=== PATIENT | male | born 1945 | race Caucasian/White ===

== ENCOUNTER → 2018-03-17 12:44 | Outpatient (CLI) | payer MEDICARE, SELFPAY ==
--- NOTE | 2018-03-17 | DI.US.S_ITS ---
PROCEDURE: US ABDOMEN COMPLETE INDICATIONS: ABDOMINAL PAIN TECHNIQUE: Real-time scanning was performed of the abdominal and retroperitoneal organs, with image documentation. COMPARISON: [facility], [place], ABDOMEN COMPLETE, 10/17/2015, 9:58. FINDINGS: Liver: Liver is normal in size and homogeneous in echotexture. Gallbladder: No gallstones identified. Normal gallbladder wall. No pericholecystic fluid. Negative sonographic Zaragoza sign. Biliary ducts: Intrahepatic bile ducts are non-dilated. Extrahepatic bile duct caliber measures 6.0 mm. Normal is 6-7 mm or less in diameter, or 10 mm or less post-cholecystectomy. Pancreas: Not well-seen. Spleen: Spleen is normal in size and homogeneous in echotexture. Kidneys: Kidneys are normal in size and echotexture. Right kidney measures 10.5 cm long; left kidney measures 10 point cm long. No hydronephrosis or nephrolithiasis. No solid masses. Aorta: Visualized aorta is normal in caliber at less than 3 cm. Iliacs: Proximal common iliac arteries are normal in caliber at less than 2.5 cm. IVC: Intrahepatic inferior vena cava is patent. Miscellaneous: No free abdominal fluid. . IMPRESSION: No source for right upper quadrant pain identified. Dictated by: Nickolas DE LEON Interpreted: Josy Forrester MD on 03/17/2018 at 14:31 Approved by: Josy Forrester M.D. on 03/17/2018 at 15:10
== END ==
PROVIDERS: PCP Internal Medicine; Visit Provider Internal Medicine
DX: R10.11 Right upper quadrant pain (principal)
CPT/HCPCS: 76700

== ENCOUNTER 2019-03-18 08:53 | Observation (INO) | payer MEDICARE, SELFPAY ==
[2019-03-18] VITALS (13 sets, daily range): BP systolic 95–145; BP diastolic 47–73; PULSE 62–85; RESP 13–18; TEMP 35.5–37.1; O2SAT 93–100; BMI 25.2
--- NOTE | 2019-03-18 09:56 | DI.RAD.S_ITS ---
PROCEDURE: XR CHEST 1V INDICATIONS: syncope TECHNIQUE: One view of the chest was acquired. COMPARISON: None. FINDINGS: Surgical changes and devices: None. Lungs and pleura: Slight increased density within the left infrahilar region of the left lung base is present. No lobar consolidation, effusion, or pneumothorax is evident. Mediastinum: Mediastinal contours appear normal. Heart size is normal. Be calcified the aorta pulmonary window lymph nodes versus aortic atherosclerosis. Bones and chest wall: No suspicious bony lesions. Overlying soft tissues appear unremarkable. IMPRESSION: Left infrahilar increased density may represent atelectasis. Please correlate clinically to exclude pneumonia. Dictated by: Zach Rice M.D. on 03/18/2019 at 9:28 Approved by: Zach Rice M.D. on 03/18/2019 at 9:28
--- NOTE | 2019-03-18 10:00 | ED.SYNCOPE ---
HPI - Syncope General Chief Complaint: Syncope Stated Complaint: Vomitting and diarreha, passed out earlier Time Seen by Provider: 03/18/19 09:51 Source: patient and family Mode of arrival: wheelchair Limitations: no limitations History of Present Illness HPI narrative: Patient is a 73-year-old male who had his multiple episodes of diarrhea and vomiting for last 24 hours. Nonbloody. He had a syncopal episode at home while he was vomiting. states he was bent over throwing up when he passed out briefly. She was able to wake him up she almost called 911 but patient refused to go by ambulance at which point he got into the car. He then was in triage when he passed out briefly in front of the nurse requiring harsh sternal rub. He says he feels dizzy and lightheaded upon sitting up. He cannot focus. No specific abdominal pain. Just multiple episodes vomiting diarrhea. He has no chest pain no shortness of breath. MD complaint: collapsed Related Data Home Medications Medication Instructions Recorded Confirmed ASPIRIN (Aspirin Low Dose) 81 mg PO QPM #0 01/08/11 03/18/19 Simvastatin (Zocor) 40 mg PO Q DAY #0 01/08/11 03/18/19 lisinopril 5 mg PO DAILY #0 06/20/17 03/18/19 zolpidem 5 mg PO BEDTIME 03/18/19 03/18/19 Allergies Allergy/AdvReac Type Severity Reaction Status Date / Time No Known Drug Allergies Allergy Unknown Unverified 02/09/18 11:56 [NO KNOWN DRUG ALLERGIES] INGREDIENT: NKDA - NO KNOWN Allergy Unknown Uncoded 02/09/18 11:56 DRUG ALLERGIES Review of Systems Review of Systems ROS Unobtainable: All systems reviewed & are unremarkable except as noted in HPI and below Constitutional Denies chills, Denies fever(s), Denies lethargy and Denies weakness Eyes Denies change in vision, Denies eye discharge, Denies irritation and Denies loss of vision ENT Ears, Nose, Mouth, and Throat: Denies change in voice, Denies neck pain and Denies sore throat Cardiovascular Denies chest pain, Reports syncope, Denies palpitations and Denies dyspnea Respiratory Denies cough and Denies dyspnea Gastrointestinal Gastrointestinal: Reports as per HPI, Reports diarrhea, Reports nausea and Reports vomiting Genitourinary Denies hematuria, Denies flank pain, Denies urinary incontinence and Denies urinary urgency Musculoskeletal Denies neck pain Integumentary/Breasts Denies pruritus, Denies erythema, Denies rash and Denies wounds Neurologic Reports syncope, Denies loss of vision and Denies weakness Endocrine Denies palpitations [facility] Medical History Hyperlipidemia (Acute) Hypertension (Acute) TIA (transient ischemic attack) (Acute) Surgical History History of mandibular surgery (Acute) Family History Mother Heart disease Father Gunshot wound Social History marital status: household members: spouse Smoking Status: Former smoker alcohol intake: former Family History Mother Heart disease Father Gunshot wound Social History marital status: household members: spouse Smoking Status: Former smoker alcohol intake: former Exam Initial Vital Signs Initial Vital Signs: Vital Signs Temperature 95.9 F L 03/18/19 10:00 Pulse Rate 62 03/18/19 10:00 Respiratory Rate 18 03/18/19 10:00 Blood Pressure 98/55 L 03/18/19 10:00 Pulse Oximetry 99 03/18/19 10:00 GENERAL: Elderly male slightly pale A&Ox3 HEENT: Head atraumatic,EOMI, pupils reactive, face symmetric, dry mucous membranes CARDIOVASCULAR: Regular rate and rhythm without murmurs, rubs or gallops. RESPIRATORY: Breath sounds equal bilaterally, no wheezes rales or rhonchi. ABDOMEN: Soft, nontender. Normoactive bowel sounds all 4 quadrants. No guarding or rebound. : No CVA tenderness EXTREMITIES: Normal range of motion, no clubbing or edema. Neurovascularly intact NEUROLOGICAL: Alert and oriented x4.Normal gait and speech. Cranial nerves II through XII grossly intact. Customer Consultant strength equal bilateral SKIN: Warm, dry, no laceration, no petechiae, no rashes or lesions. Scores NIH Stroke Scale Level of Conciousness: Alert, keenly responsive Ask month/age: Answers both questions correctly. Open/close eyes, close hand: Performs both tasks correctly Best gaze horizontal: Normal Visual moreno: No visual loss Facial palsy: Normal symetrical movement Left arm drift: No drift for full 10 sec Right arm drift: No drift for full 10 sec Left leg drift: No drift for full 10 sec Right leg drift: No drift for full 10 sec Limb ataxia: Absent Sensory on face/arms/legs: Normal, no sensory loss Best language: No aphasia, normal Dysarthria: Normal Extinction or inattention: No abnormality Total NIH Stroke scale score: 0 Course Orders Ordered: ED Orders 03/18/19 09:56 XR chest 1V Stat EKG-12 Lead Stat 03/18/19 10:20 Complete Blood Count AUTO DIFF Stat Comprehensive Metabolic Panel Stat Lactate (Lactic Acid) Stat Lipase Stat Troponin & CK Cardiac Panel Stat 03/18/19 12:25 Education, smoking cessation ONGOING 03/19/19 Lactate (Lactic Acid) Stat 03/19/19 05:00 Basic Metabolic Panel Routine Complete Blood Count AUTO DIFF Routine Dextrose/Sodium Chloride (Dextrose 5%-0.9% Ns) 1,000 mls @ 100 mls/hr IV CONT PETEY Last Infusion: 03/18/19 13:52 Dose: 100 mls/hr Infusion: 03/18/19 13:39 Dose: 0 mls/hr Admin: 03/18/19 12:47 Dose: 100 mls/hr Ondansetron HCl (Zofran) 4 mg IV Q8HR PRN PRN Reason: Nausea And Vomiting Discontinued Medications Sodium Chloride (Normal Saline 0.9%) 1,000 mls @ 1,000 mls/hr IV BOLUS ONE Stop: 03/18/19 10:50 Last Infusion: 03/18/19 11:28 Dose: 0 mls/hr Admin: 03/18/19 10:10 Dose: 1,000 mls/hr Sodium Chloride (Normal Saline 0.9%) 1,000 mls @ 1,000 mls/hr IV BOLUS ONE Stop: 03/18/19 12:26 Last Infusion: 03/18/19 12:46 Dose: 0 mls/hr Admin: 03/18/19 11:29 Dose: 1,000 mls/hr Vital Signs - 8 hr 03/18/19 11:05 03/18/19 11:20 03/18/19 11:30 Temperature Pulse Rate 67 66 Pulse Rate [Orthostatic Lying] 67 Pulse Rate [Orthostatic Sitting] 74 Pulse Rate [Orthostatic Standing] 78 Respiratory Rate 16 13 Blood Pressure Blood Pressure [Left Arm] 125/66 116/62 Blood Pressure [Orthostatic Lying] 125/66 Blood Pressure [Orthostatic Sitting] 120/62 Blood Pressure [Orthostatic Standing] 95/70 Pulse Oximetry 98 100 03/18/19 12:00 03/18/19 12:30 03/18/19 13:00 Temperature Pulse Rate 71 73 80 Pulse Rate [Orthostatic Lying] Pulse Rate [Orthostatic Sitting] Pulse Rate [Orthostatic Standing] Respiratory Rate 18 15 15 Blood Pressure Blood Pressure [Left Arm] 129/60 137/60 122/59 L Blood Pressure [Orthostatic Lying] Blood Pressure [Orthostatic Sitting] Blood Pressure [Orthostatic Standing] Pulse Oximetry 97 100 95 03/18/19 13:40 03/18/19 13:45 03/18/19 15:46 Temperature 98.8 F 98.0 F Pulse Rate 67 74 85 Pulse Rate [Orthostatic Lying] Pulse Rate [Orthostatic Sitting] Pulse Rate [Orthostatic Standing] Respiratory Rate 16 18 18 Blood Pressure 122/69 145/72 H 138/73 Blood Pressure [Left Arm] Blood Pressure [Orthostatic Lying] Blood Pressure [Orthostatic Sitting] Blood Pressure [Orthostatic Standing] Pulse Oximetry 98 93 100 MDM - Syncope Lab Data Attestation: I reviewed the patient's lab results. Result diagrams: 03/18/19 10:20 03/18/19 10:20 Lab Results 03/18/19 03/18/19 03/18/19 Range/Units 10:20 10:20 10:20 WBC 16.6 H (4.5-11.0) X10^3/uL RBC 5.45 (4.5-5.9) X10^6/uL Hgb 17.4 (13.5-17.5) g/dL Hct 51.2 (41-53) % MCV 93.9 (80-100) fL MCH 31.9 (26-34) PG MCHC 34.0 (30-36) % RDW 13.5 (11.6-14.8) % Plt Count 279 (150-400) X10^3/uL Neut % (Auto) 89.7 H (50-75) % Lymph % (Auto) 6.8 L (25-40) % [place] % (Auto) 3.2 (3-14) % Eos % (Auto) 0.0 L (2-4) % Baso % (Auto) 0.3 (0-2) % Neut # (Auto) 86988 H (3929-9559) /uL Lymph # (Auto) 1100 (6252-6946) /uL [place] # (Auto) 500 (0-900) /uL Eos # (Auto) 0 (0-450) /uL Baso # (Auto) 0 (0-100) /uL Sodium (137-145) mmol/L Potassium (3.4-5.1) mmol/L Chloride (98-107) mmol/L Carbon Dioxide (22-32) mmol/L BUN (9-20) mg/dL Creatinine (0.66-1.25) mg/dL Estimated GFR (>60) mL/min BUN/Creatinine Ratio (6-22) Glucose (80-110) mg/dL Lactate 2.4 H (0.7-2.1) mmol/L Calcium (8.4-10.2) mg/dL Total Bilirubin (0.2-1.3) mg/dL AST (17-59) IU/L ALT (21-72) IU/L Alkaline Phosphatase (38-126) U/L Total Creatine Kinase (55-170) U/L CK-MB (CK-2) CK-MB (CK-2) Rel Index Troponin I (0.01-0.034) ng/mL Total Protein (6.3-8.2) g/dL Albumin (3.5-5.0) g/dL Globulin (1.7-4.1) g/dL Albumin/Globulin Ratio (1.0-2.8) Lipase 127 (23-300) U/L 03/18/19 03/18/19 Range/Units 10:20 13:34 WBC (4.5-11.0) X10^3/uL RBC (4.5-5.9) X10^6/uL Hgb (13.5-17.5) g/dL Hct (41-53) % MCV (80-100) fL MCH (26-34) PG MCHC (30-36) % RDW (11.6-14.8) % Plt Count (150-400) X10^3/uL Neut % (Auto) (50-75) % Lymph % (Auto) (25-40) % [place] % (Auto) (3-14) % Eos % (Auto) (2-4) % Baso % (Auto) (0-2) % Neut # (Auto) (5444-2626) /uL Lymph # (Auto) (7666-9076) /uL [place] # (Auto) (0-900) /uL Eos # (Auto) (0-450) /uL Baso # (Auto) (0-100) /uL Sodium 143 (137-145) mmol/L Potassium 5.1 (3.4-5.1) mmol/L Chloride 104 (98-107) mmol/L Carbon Dioxide 20 L (22-32) mmol/L BUN 29 H (9-20) mg/dL Creatinine 2.30 H (0.66-1.25) mg/dL Estimated GFR 27.9 L (>60) mL/min BUN/Creatinine Ratio 12.6 (6-22) Glucose 168 H (80-110) mg/dL Lactate 1.2 (0.7-2.1) mmol/L Calcium 10.7 H (8.4-10.2) mg/dL Total Bilirubin 1.3 (0.2-1.3) mg/dL AST 35 (17-59) IU/L ALT 32 (21-72) IU/L Alkaline Phosphatase 106 (38-126) U/L Total Creatine Kinase 72 (55-170) U/L CK-MB (CK-2) TNP CK-MB (CK-2) Rel Index TNP Troponin I < 0.012 (0.01-0.034) ng/mL Total Protein 9.6 H (6.3-8.2) g/dL Albumin 5.2 H (3.5-5.0) g/dL Globulin 4.4 H (1.7-4.1) g/dL Albumin/Globulin Ratio 1.2 (1.0-2.8) Lipase (23-300) U/L Point of Care Testing Glucose POC 156 ECG Data Attestation: I personally reviewed and interpreted this ECG as follows: Prior ECG tracings: available for review Interpretation: Normal sinus rhythm rate 63 year interval [address] changes MDM Narrative Medical decision making narrative: Patient abdomen is reexamined and remains soft. He is overall feeling better after IV fluids and Zofran. However he has slight elevated lactic acid and increase creatinine of 2.3 today. His baseline seems to be about 1.4. At this time abdomen is soft I do not see a need for any CT. He had nausea vomiting diarrhea consistent with gastroenteritis. He has had no further episodes of diarrhea. patient is acutely dehydrated. Dr. Lala accepts Patient has no focal deficits. Likely syncopal episodes are due from dehydration and hypotension. At this time I do not think head CT is indicated either. Discharge Plan Departure Patient Disposition: Admitted as Observation Clinical Impression: Dehydration, Gastroenteritis Discharge Date/Time: 03/18/19 13:42 Interventions: ED Discharge Assessment Last Done: 03/18/19 13:40 Admit Date/Time: 03/18/19 12:29 Admit Provider: Meseret Lala
[2019-03-18] MEDS: SODIUM CHLORIDE 0.9% 1,000 ML 1000 ML IV ×2 (10:10→11:29)
[2019-03-18 11:19] LABS: Add Manual Diff / Slide Review NO; Basophils Absolute Auto 0 /uL (0-100); Basophils Percent Auto 0.3 % (0-2); Eosinophils Absolute Auto 0 /uL (0-450); Hematocrit 51.2 % (41-53); Hemoglobin 17.4 g/dL (13.5-17.5); Lymphocytes Absolute Auto 1100 /uL (1100-4500); Lymphocytes Percent Auto 6.8 % (25-40); Mean Corpuscular Hemoglobin 31.9 PG (26-34); Mean Corpuscular Volume 93.9 fL (80-100); Monocytes Absolute Auto 500 /uL (0-900); Monocytes Percent Auto 3.2 % (3-14); Neutrophils Absolute Auto 14900 /uL (1500-7000); Neutrophils Percent Auto 89.7 % (50-75); Platelet Count 279 X10^3/uL (150-400); Red Blood Cell Count 5.45 X10^6/uL (4.5-5.9); Red Cell Distribution Width 13.5 % (11.6-14.8); White Blood Cell Count 16.6 X10^3/uL (4.5-11.0)
[2019-03-18 11:31] LABS: Lipase 127 U/L (23-300)
[2019-03-18 11:33] LABS: Alanine Aminotransferase 32 IU/L (21-72); Albumin 5.2 g/dL (3.5-5.0); Albumin Globulin Ratio 1.2 (1.0-2.8); Alkaline Phosphatase 106 U/L (38-126); Aspartate Aminotransferase 35 IU/L (17-59); BUN Creatinine Ratio 12.6 (6-22); Bilirubin Total 1.3 mg/dL (0.2-1.3); Blood Urea Nitrogen 29 mg/dL (9-20); Calcium 10.7 mg/dL (8.4-10.2); Carbon Dioxide 20 mmol/L (22-32); Chloride 104 mmol/L (98-107); Creatine Kinase 72 U/L (55-170); Estimated Glomerular Filt Rate 27.9 mL/min (>60); Globulin 4.4 g/dL (1.7-4.1); Glucose 168 mg/dL (80-110); HEMOLYSIS 25 (0-50); Potassium 5.1 mmol/L (3.4-5.1); Sodium 143 mmol/L (137-145); Total Protein 9.6 g/dL (6.3-8.2)
[2019-03-18 11:34] LABS: Lactate (Lactic Acid) 2.4 mmol/L (0.7-2.1)
[2019-03-18 11:44] LABS: Troponin I < 0.012 ng/mL (0.01-0.034)
--- NOTE | 2019-03-18 12:27 | PC.NURSE ---
DO Joel aware, verbal order for 2nd liter NS at this time.
--- NOTE | 2019-03-18 12:30 | PM.HP.1 ---
History of Present Illness Date Patient Seen: 03/18/19 Time Patient Seen: 14:02 Chief complaint: Vomitting and diarreha, passed out earlier Narrative: This is a 73-year-old male who began having vomiting and diarrhea quite suddenly about 12 hours ago last evening. He had cooked dinner for friends, they had not eaten any suspicious foods or leftovers, and no one else who ate the meal has been ill. There was some [place] potato salad and ribs. His creatinine has risen from 1.4 up to 2.3. His lactic acid level is 2.4. His white count is 16 along with a calcium of 10.7 and a GFR that dropped from 52 down to 27 over the last month. His systolic blood pressures were in the 90s on presentation to the emergency department, rising to 116 with 2 L of IV fluid. He did have some abdominal pain/cramping but that has resolved. The protein level is also high at 9.6 so an immunofixation level will be done. There have been no chills or sweats. There has been no fever. Patient History Medical History Hyperlipidemia (Acute) Hypertension (Acute) TIA (transient ischemic attack) (Acute) Surgical History History of mandibular surgery (Acute) Family History (Updated 03/18/19 @ 14:06 by Meseret Lala MD) Mother Heart disease Father Gunshot wound Social History marital status: Smoking Status: Never smoker Family & Social History Family History Mother Heart disease Father Gunshot wound Social History: Denies smoking cigarettes, marijuana, using alcohol. He is full code. Safety & Behavioral: Feels Safe in Current Yes Environment Been Physically Hurt or No Threatened By a Person Tobacco & Substance use: Smoking Status Never smoker Substance Use Type does not use Meds Home Medications Medication Instructions Recorded Confirmed Type ASPIRIN (Aspirin Low Dose) 81 mg PO QPM #0 01/08/11 03/18/19 History Simvastatin (Zocor) 40 mg PO Q DAY #0 01/08/11 03/18/19 History lisinopril 5 mg PO DAILY #0 06/20/17 03/18/19 History zolpidem 5 mg PO BEDTIME 03/18/19 03/18/19 History Allergies Allergy/AdvReac Type Severity Reaction Status Date / Time No Known Drug Allergies Allergy Unknown Unverified 02/09/18 11:56 [NO KNOWN DRUG ALLERGIES] INGREDIENT: NKDA - NO KNOWN Allergy Unknown Uncoded 02/09/18 11:56 DRUG ALLERGIES Review of Systems Review of Systems Positive for syncope, vomiting, abdominal cramping now resolved. Negative for chest pain, fevers, coughing, bloody stool, dysuria, rashes, joint pain, seizures, headaches, trouble talking, new allergies, sore throat. All systems reviewed & are unremarkable except as noted in HPI and below Exam Vital Signs (past 8 hours): - 03/18/19 10:00 03/18/19 10:15 03/18/19 11:05 Temperature 95.9 F L Pulse Rate 62 67 Pulse Rate [Orthostatic Lying] Pulse Rate [Orthostatic Sitting] Pulse Rate [Orthostatic Standing] Respiratory Rate 18 16 Blood Pressure 98/55 L Blood Pressure [Left Arm] 96/47 L 125/66 Blood Pressure [Orthostatic Lying] Blood Pressure [Orthostatic Sitting] Blood Pressure [Orthostatic Standing] Pulse Oximetry 99 98 03/18/19 11:20 03/18/19 11:30 03/18/19 12:00 Temperature Pulse Rate 66 71 Pulse Rate [Orthostatic Lying] 67 Pulse Rate [Orthostatic Sitting] 74 Pulse Rate [Orthostatic Standing] 78 Respiratory Rate 13 18 Blood Pressure Blood Pressure [Left Arm] 116/62 129/60 Blood Pressure [Orthostatic Lying] 125/66 Blood Pressure [Orthostatic Sitting] 120/62 Blood Pressure [Orthostatic Standing] 95/70 Pulse Oximetry 100 97 Oxygen Delivery Method Room Air Narrative Exam Narrative: Alert and oriented x3. No apparent distress. Pupils are equally round and reactive to light and accommodation. Sclerae are pink and nonicteric. Extraocular muscles are intact. Throat looks normal. No lymph nodes are felt head, neck, supraclavicular area. There is no thyromegaly. No carotid bruits are heard. JVD is less than 8 cm. Heart is regular rate and rhythm without murmur. Lungs clear to auscultation bilaterally. Abdomen is soft, bowel sounds positive, nontender, no organomegaly. Extremities have no ankle edema. Skin has no rash or jaundice. Neuro exam. Cranial nerves 2-12 tested intact. Motor function is 5/5 throughout. Deep tendon reflexes are normal. Gait and balance are not tested. Objective Labs Result Diagrams: 03/18/19 10:20 03/18/19 10:20 Labs: Laboratory Results - last 24 hr 03/18/19 03/18/19 03/18/19 10:20 10:20 10:20 WBC 16.6 H RBC 5.45 Hgb 17.4 Hct 51.2 MCV 93.9 MCH 31.9 MCHC 34.0 RDW 13.5 Plt Count 279 Neut % (Auto) 89.7 H Lymph % (Auto) 6.8 L [place] % (Auto) 3.2 Eos % (Auto) 0.0 L Baso % (Auto) 0.3 Neut # (Auto) 58730 H Lymph # (Auto) 1100 [place] # (Auto) 500 Eos # (Auto) 0 Baso # (Auto) 0 Sodium Potassium Chloride Carbon Dioxide BUN Creatinine Estimated GFR BUN/Creatinine Ratio Glucose Lactate 2.4 H Calcium Total Bilirubin AST ALT Alkaline Phosphatase Total Creatine Kinase CK-MB (CK-2) CK-MB (CK-2) Rel Index Troponin I Total Protein Albumin Globulin Albumin/Globulin Ratio Lipase 127 03/18/19 10:20 WBC RBC Hgb Hct MCV MCH MCHC RDW Plt Count Neut % (Auto) Lymph % (Auto) [place] % (Auto) Eos % (Auto) Baso % (Auto) Neut # (Auto) Lymph # (Auto) [place] # (Auto) Eos # (Auto) Baso # (Auto) Sodium 143 Potassium 5.1 Chloride 104 Carbon Dioxide 20 L BUN 29 H Creatinine 2.30 H Estimated GFR 27.9 L BUN/Creatinine Ratio 12.6 Glucose 168 H Lactate Calcium 10.7 H Total Bilirubin 1.3 AST 35 ALT 32 Alkaline Phosphatase 106 Total Creatine Kinase 72 CK-MB (CK-2) TNP CK-MB (CK-2) Rel Index TNP Troponin I < 0.012 Total Protein 9.6 H Albumin 5.2 H Globulin 4.4 H Albumin/Globulin Ratio 1.2 Lipase Assessment & Plan (1) Hypertension: Problem details: Holding lisinopril during this acute illness. Current visit: Yes Status: Acute (2) Hyperlipidemia: Problem details: Holding simvastatin during this acute illness. Current visit: Yes Status: Acute (3) Dehydration: Problem details: Continue IV fluid supplementation and recheck lactic acid level tomorrow. Current visit: Yes Status: Acute (4) Gastroenteritis: Problem details: Continue IV fluid, so far the vomiting and diarrhea seems to be resolving quickly, suggesting this is a viral or food poisoning etiology. The white blood count of 16 will be repeated. Current visit: Yes Status: Acute (5) Hypercalcemia: Problem details: Repeat calcium level in the morning. Current visit: Yes Status: Acute (6) High serum protein level: Problem details: Repeat protein, albumin and order immunofixation. Current visit: Yes Status: Acute (7) CKD (chronic kidney disease): Problem details: This is expected to respond to IV fluid hydration and will be rechecked in the morning. Current visit: Yes Status: Acute
[2019-03-18] MEDS: DEXTROSE 5%-0.9% NS 1,000 ML 100 ML IV ×2 (12:47→23:48)
[2019-03-18 13:15] LABS: Reflexed Lactate in 2 Hours Y
[2019-03-18 13:55] LABS: Lactate 2HR (Lactic Acid Rflx) 1.2 mmol/L (0.7-2.1)
[2019-03-18] MEDS: ZOLPIDEM 5 MG TABLET PO (21:08)
--- NOTE | 2019-03-18 23:45 | PC.NURSE ---
Shift 3p-11p Report received, care assumed. Pt. denies pain, nausea, and abnormal symptoms of any kind. Assessment WNL. Tolerating clear liquid diet, ambulating to bathroom with standby assist. Receiving IV fluid. SUSANA amador.
[2019-03-19 00:18] VITALS: O2SAT 99
--- NOTE | 2019-03-19 01:47 | PC.NURSE ---
Pt is calm and cooperative, on clear liquid diet, VSS, Lung sounds clear bilaterally. Denies nausea, and is sleeping quietly on this shift.
[2019-03-19 05:58] VITALS: BP 134/60; PULSE 75; RESP 16; TEMP 37.1; O2SAT 98
[2019-03-19 06:05] LABS: Add Manual Diff / Slide Review NO; Basophils Absolute Auto 100 /uL (0-100); Basophils Percent Auto 0.8 % (0-2); Eosinophils Absolute Auto 0 /uL (0-450); Eosinophils Percent Auto 0.3 % (2-4); Hematocrit 39.8 % (41-53); Hemoglobin 13.5 g/dL (13.5-17.5); Lymphocytes Absolute Auto 1300 /uL (1100-4500); Lymphocytes Percent Auto 12.5 % (25-40); Mean Corpuscular Hemoglobin 31.6 PG (26-34); Mean Corpuscular Volume 93.1 fL (80-100); Monocytes Absolute Auto 800 /uL (0-900); Monocytes Percent Auto 7.3 % (3-14); Neutrophils Absolute Auto 8400 /uL (1500-7000); Neutrophils Percent Auto 79.1 % (50-75); Platelet Count 189 X10^3/uL (150-400); Red Blood Cell Count 4.27 X10^6/uL (4.5-5.9); Red Cell Distribution Width 13.4 % (11.6-14.8); White Blood Cell Count 10.7 X10^3/uL (4.5-11.0)
[2019-03-19 06:15] LABS: BUN Creatinine Ratio 15.4 (6-22); Blood Urea Nitrogen 20 mg/dL (9-20); Calcium 8.4 mg/dL (8.4-10.2); Carbon Dioxide 22 mmol/L (22-32); Chloride 112 mmol/L (98-107); Estimated Glomerular Filt Rate 53.8 mL/min (>60); Glucose 121 mg/dL (80-110); HEMOLYSIS < 15 (0-50); Lactate (Lactic Acid) 1.2 mmol/L (0.7-2.1); Potassium 4.5 mmol/L (3.4-5.1); Sodium 141 mmol/L (137-145)
[2019-03-19 07:50] VITALS: O2SAT 98
[2019-03-19 08:15] VITALS: BP 140/76; PULSE 65; RESP 16; TEMP 37.4; O2SAT 96
[2019-03-19 10:14] LABS: Adenovirus F 40/41 Not Detected (Not Detect); Astrovirus Not Detected (Not Detect); Campylobacter Not Detected (Not Detect); Clostridium difficile toxin AB Not Detected (Not Detect); Cryptosporidium Not Detected (Not Detect); Cyclospora cayetanensis Not Detected (Not Detect); Entamoeba histolytica Not Detected (Not Detect); Enteroaggregative E.coli Not Detected (Not Detect); Enteropathogenic E.coli Not Detected (Not Detect); Enterotoxigenic E.coli It/st Not Detected (Not Detect); Giardia lamblia Not Detected (Not Detect); Norovirus GI/GII Detected (Not Detect); Plesiomonsa shigelloides Not Detected (Not Detect); Rotavirus A Not Detected (Not Detect); Salmonella Not Detected (Not Detect); Sapovirus Not Detected (Not Detect); Shiga-like toxin-prod E.coli Not Detected (Not Detect); Shigella/Enteroinvasive E.coli Not Detected (Not Detect); Vibrio Not Detected (Not Detect); Vibrio cholerae Not Detected (Not Detect); Yersinia enterocolitica Not Detected (Not Detect)
--- NOTE | 2019-03-19 10:59 | PM.DS.1 ---
History of Present Illness Date Patient Seen: 03/18/19 Chief complaint: Vomitting and diarreha, passed out earlier Narrative: Written by Dr. Lala: This is a 73-year-old male who began having vomiting and diarrhea quite suddenly about 12 hours ago last evening. He had cooked dinner for friends, they had not eaten any suspicious foods or leftovers, and no one else who ate the meal has been ill. There was some [place] potato salad and ribs. His creatinine has risen from 1.4 up to 2.3. His lactic acid level is 2.4. His white count is 16 along with a calcium of 10.7 and a GFR that dropped from 52 down to 27 over the last month. His systolic blood pressures were in the 90s on presentation to the emergency department, rising to 116 with 2 L of IV fluid. He did have some abdominal pain/cramping but that has resolved. The protein level is also high at 9.6 so an immunofixation level will be done. There have been no chills or sweats. There has been no fever. Discharge Providers Date of admission: 03/18/19 12:29 Discharge Date: 03/19/19 Primary care physician: Luis Delacruz MD Discharge provider: Estefany Henson DO Summary Discharge Diagnosis: 1. Acute viral gastroenteritis, secondary to acute norovirus infection, present on admission. Resolved. 2. 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 Acute portion resolved. 3. Hypercalcemia and high serum protein level, present on admission. Resolved. 4. Hypertension, chronic, present on admission. Stable. 5. Hyperlipidemia, chronic, present on admission. Stable. Hospital Course: Milo Blanton is a 73-year-old male with a past medical history significant for TIA, hypertension, and hyperlipidemia who presented to the ED for abrupt onset intractable nausea, vomiting, and diarrhea. 1. Acute viral gastroenteritis, secondary to acute norovirus infection, present on admission. Resolved. -GI stool PCR positive for Norovirus. -Continued IV fluid hydration until adequately hydrated. -Initially on bowel rest and slowly advanced diet to soft and bland which was tolerated. Instructed patient to slowly advance to normal diet as tolerated. 2. 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 Acute portion resolved. -Secondary to dehydration and prerenal azotemia. LA initially elevated at 2.4 due to dehydration and quickly returned to normal with IVF -Initial Cr 2.3. Baseline creatinine 1.4. Corrected with IV fluid with creatinine now 1.3. -Avoided nephrotoxic agents. 3. Hypercalcemia and high serum protein level, present on admission. Resolved. -Likely secondary to dehydration from N/V and diarrhea. Corrected readily with IVF. -Immunofixation ordered and pending due to send out. Recommend PCP to follow-up outpatient. 4. Hypertension, chronic, present on admission. Stable. Held lisinopril due to acute illness and restarted at time of discharge. 5. Hyperlipidemia, chronic, present on admission. Stable. Held simvastatin due to acute illness and restarted at time of discharge. Status at Discharge Functional status at discharge: independent ambulation Overall status at discharge: patient is progressing back to baseline Exam Vital Signs (past 8 hours): - 03/19/19 05:58 03/19/19 07:50 03/19/19 08:15 Temperature 98.7 F 99.3 F Pulse Rate 75 65 Respiratory Rate 16 16 Blood Pressure 134/60 140/76 Pulse Oximetry 98 98 96 Oxygen Delivery Method Room Air Oxygen Flow Rate 0 Narrative Exam Narrative: General:Elderly gentleman lying in bed and in no acute distress, well-developed, well-nourished, appropriately interactive. HEENT: Normocephalic, atraumatic. External ears without defect. Pupils equal, round, and reactive to light. Anicteric sclerae, moist conjunctivae, and no lid lag. Neck: Supple with full range of motion. No lymphadenopathy or thyromegaly. Cardiovascular: Regular rate and rhythm with no murmurs, rubs, or gallops appreciated. Pulmonary: Clear to auscultation bilaterally with no crackles, wheezes, or rhonchi. Normal respiratory effort with no use of accessory muscles. Abdomen: Soft, bowel sounds present, nontender, nondistended. No hepatosplenomegaly or masses appreciated. Extremities: No clubbing, cyanosis, or edema. Skin: Normal temperature, turgor, and texture; no rash, ulcers, or subcutaneous nodules appreciated. Neurological: Cranial nerves grossly intact. Psychiatric: Normal mood and affect. Alert and oriented to person, place, and time. Objective Labs Result Diagrams: 03/19/19 05:55 03/19/19 05:55 Labs: Laboratory Results - last 24 hr 03/18/19 03/18/19 03/18/19 10:20 10:20 10:20 WBC 16.6 H RBC 5.45 Hgb 17.4 Hct 51.2 MCV 93.9 MCH 31.9 MCHC 34.0 RDW 13.5 Plt Count 279 Neut % (Auto) 89.7 H Lymph % (Auto) 6.8 L Roosevelt % (Auto) 3.2 Eos % (Auto) 0.0 L Baso % (Auto) 0.3 Neut # (Auto) 27595 H Lymph # (Auto) 1100 Roosevelt # (Auto) 500 Eos # (Auto) 0 Baso # (Auto) 0 Sodium Potassium Chloride Carbon Dioxide BUN Creatinine Estimated GFR BUN/Creatinine Ratio Glucose Lactate 2.4 H Calcium Total Bilirubin AST ALT Alkaline Phosphatase Total Creatine Kinase CK-MB (CK-2) CK-MB (CK-2) Rel Index Troponin I Total Protein Albumin Globulin Albumin/Globulin Ratio Lipase 127 Stl C. cayetanensis PCR Stool Rotavirus (PCR) Stool Adenovirus (PCR) Stool Astrovirus (PCR) Stool Cryptosporidium PCR Stl E.coli Shiga Tox PCR St Sh/Enteroin Ecoli PCR Stool E coli O157 PCR Stl Enterotoxigenic E PCR Stool EPEC (PCR) Stl E. histolytica PCR Stool Giardia Lamblia PCR Stool Sapovirus (PCR) Stl P. shigelloides PCR St Y.enterocolitica PCR Stool Vibrio (PCR) Stl Vibrio cholerae PCR Stl Enteroaggr Ecoli PCR Stl Norovirus GI/GII PCR Campylobacter (PCR) C. difficile Tox (PCR) Salmonella (PCR) 03/18/19 03/18/19 03/19/19 10:20 13:34 05:55 WBC 10.7 RBC 4.27 L Hgb 13.5 Hct 39.8 L MCV 93.1 MCH 31.6 MCHC 34.0 RDW 13.4 Plt Count 189 Neut % (Auto) 79.1 H Lymph % (Auto) 12.5 L Roosevelt % (Auto) 7.3 Eos % (Auto) 0.3 L Baso % (Auto) 0.8 Neut # (Auto) 8400 H Lymph # (Auto) 1300 Roosevelt # (Auto) 800 Eos # (Auto) 0 Baso # (Auto) 100 Sodium 143 Potassium 5.1 Chloride 104 Carbon Dioxide 20 L BUN 29 H Creatinine 2.30 H Estimated GFR 27.9 L BUN/Creatinine Ratio 12.6 Glucose 168 H Lactate 1.2 Calcium 10.7 H Total Bilirubin 1.3 AST 35 ALT 32 Alkaline Phosphatase 106 Total Creatine Kinase 72 CK-MB (CK-2) TNP CK-MB (CK-2) Rel Index TNP Troponin I < 0.012 Total Protein 9.6 H Albumin 5.2 H Globulin 4.4 H Albumin/Globulin Ratio 1.2 Lipase Stl C. cayetanensis PCR Stool Rotavirus (PCR) Stool Adenovirus (PCR) Stool Astrovirus (PCR) Stool Cryptosporidium PCR Stl E.coli Shiga Tox PCR St Sh/Enteroin Ecoli PCR Stool E coli O157 PCR Stl Enterotoxigenic E PCR Stool EPEC (PCR) Stl E. histolytica PCR Stool Giardia Lamblia PCR Stool Sapovirus (PCR) Stl P. shigelloides PCR St Y.enterocolitica PCR Stool Vibrio (PCR) Stl Vibrio cholerae PCR Stl Enteroaggr Ecoli PCR Stl Norovirus GI/GII PCR Campylobacter (PCR) C. difficile Tox (PCR) Salmonella (PCR) 03/19/19 03/19/19 03/19/19 05:55 05:55 07:40 WBC RBC Hgb Hct MCV MCH MCHC RDW Plt Count Neut % (Auto) Lymph % (Auto) Roosevelt % (Auto) Eos % (Auto) Baso % (Auto) Neut # (Auto) Lymph # (Auto) Roosevelt # (Auto) Eos # (Auto) Baso # (Auto) Sodium 141 Potassium 4.5 Chloride 112 H Carbon Dioxide 22 BUN 20 Creatinine 1.30 H Estimated GFR 53.8 L BUN/Creatinine Ratio 15.4 Glucose 121 H Lactate 1.2 Calcium 8.4 Total Bilirubin AST ALT Alkaline Phosphatase Total Creatine Kinase CK-MB (CK-2) CK-MB (CK-2) Rel Index Troponin I Total Protein Albumin Globulin Albumin/Globulin Ratio Lipase Stl C. cayetanensis PCR Not detected Stool Rotavirus (PCR) Not detected Stool Adenovirus (PCR) Not detected Stool Astrovirus (PCR) Not detected Stool Cryptosporidium PCR Not detected Stl E.coli Shiga Tox PCR Not detected St Sh/Enteroin Ecoli PCR Not detected Stool E coli O157 PCR Not detected Stl Enterotoxigenic E PCR Not detected Stool EPEC (PCR) Not detected Stl E. histolytica PCR Not detected Stool Giardia Lamblia PCR Not detected Stool Sapovirus (PCR) Not detected Stl P. shigelloides PCR Not detected St Y.enterocolitica PCR Not detected Stool Vibrio (PCR) Not detected Stl Vibrio cholerae PCR Not detected Stl Enteroaggr Ecoli PCR Not detected Stl Norovirus GI/GII PCR Detected H Campylobacter (PCR) Not detected C. difficile Tox (PCR) Not detected Salmonella (PCR) Not detected Discharge Plan Discharge Plan Patient Disposition: Home Discharge comment: You are being discharged home. Please follow-up with your PCP, Dr. Delacruz, in the next 1-2 weeks regarding your hospitalization. You had Norovirus which is a self-limiting viral gastroenteritis. Please wash your hands frequently and avoid sharing drinks/kissing for the next several days. Advance your diet slowly over the next several days as tolerated. Discharge Med Rec/Prescriptions Prescriptions: Continued ASPIRIN (Aspirin Low Dose) tablet 81 mg PO QPM Qty: 0 RF: 0 Simvastatin (Zocor) 40 mg PO Q DAY Qty: 0 RF: 0 lisinopril 10 MG tablet 5 mg PO DAILY Qty: 0 RF: 0 zolpidem 5 mg tablet 5 mg PO BEDTIME RF: 0 Follow up/Referrals: Luis Delacruz MD [Primary Care Provider] - Provider Discharge Instructions Diet: Diet as Tolerated, Low-fat, Low-sodium and Low-cholesterol Activity: Activity as tolerated Visit Report/Discharge Packet Instructions: Rodney Diet, Soft Diet, DI for Dehydration -- Adult, DI for Viral Gastroenteritis -- Adult, DI for Norovirus Infection Discharge Data Primary Care Provider: Luis Delacruz Attending Provider: Meseret Lala Admit Date/Time: 03/18/19 12:29 Discharges patient from system. Discharge Date/Time: 03/19/19 12:33 Quality VTE Deep Vein Thrombosis/Pulmonary Embolism Present on Admission: No
--- NOTE | 2019-03-19 11:01 | PC.NURSE ---
Addendum entered by Ruby Vaughan R.N. 03/19/19 12:33: Discharge Summary packet reviewed with pt and his Ada at bedside, all questions answered. Pt states has an appointment already made for a wellness check with Dr. Delacruz on March 29. Instructed pt to call office Wednesday and let them know of the hospital stay. Pt left unit via wheelchair with RADIATION ONCOLOGY MANAGER in no distress with all belongings at 1233. Original Note: Day Shift- Stool sample sent to lab, BM was watery, brown/green. Pt tolerated breakfast of oatmeal well, no nausea, no abd cramping, distention, discomfort. BS X4 hyperactive, passing flatus. Positive Norovirus result per Dr. Henson to RN Coordinator, Pt placed in enteric isolation precautions around 1040. Dr. Henson updated pt at bedside with result. Plan for pt to be discharged today with precautions.
--- NOTE | 2019-03-19 12:37 | CM.DANOTE ---
Discharge Planning/Care Management DCP: assessment: case received and discussed in Team Rounds. Dr. Henson stated she expected to d/c pt home today if he tolerated breakfast. Pt is a 73 year old male who admitted yesterday afternoon to care of hospitalist team. Payer: Medicare and [employer]. PCP: Dr. Armando Delacruz Lab results from this morning show + Norovirus. Dr. Henson did update pt re this and d/c'd him to home. Planned to check in now but see that pt has already left the hospital for home. LOS < 24 hours Advanced directive, confirm from FAMILY Start: 03/18/19 14:33 Freq: Q24H Status: Discharge Protocol: Document 03/19/19 09:11 AC (Rec: 03/19/19 09:11 AC [id number]) Advance Directive, confirm on record Time 07:50 Person contacted Milo Copy received No CM Discharge Assessment Start: 03/19/19 12:36 Freq: Status: Active Protocol: Document 03/19/19 12:37 ITV (Rec: 03/19/19 12:37 ITV [id number]) Discharge Planning Assessment Advance Directives? Yes Advance Directives on File No History Provided By Medical Record Prior Living Arrangements House Household Members spouse Is patient alert and oriented? Yes Review Status In Process Next Review Type Continued Stay Review
== END 2019-03-19 12:33 | disposition home or self-care (01) ==
LOC: ED 12:01 → AC 12:30
PROVIDERS: Internal Medicine; Admitting Provider Family Medicine; Emergency Provider Emergency Medicine; PCP Internal Medicine; Visit Provider Family Medicine
DX: A08.11 Acute gastroenteropathy due to Norwalk agent (principal); R55 Syncope and collapse; N18.9 Chronic kidney disease, unspecified; R77.9 Abnormality of plasma protein, unspecified; E83.52 Hypercalcemia; I10 Essential (primary) hypertension; E78.5 Hyperlipidemia, unspecified; E86.0 Dehydration
CPT/HCPCS: 36415; 36591; 71045; 80048; 80053; 82550; 82784; 82962; 83605; 83690; 84155; 84484; 85025; 86334; 87507; 93005; 93010; 94762; 96360; 96361; 99285; G0378

== ENCOUNTER → 2022-11-30 13:07 | Outpatient (CLI) | payer MEDICARE, SELFPAY ==
[2019-03-18 14:19] VITALS: BMI 25.2
--- NOTE | 2022-11-30 13:10 | DI.US.S_ITS ---
PROCEDURE: US RENAL COMPLETE INDICATIONS: STAGE 3A CHRONIC KIDNEY DISEASE TECHNIQUE: Real-time scanning was performed of the kidneys and bladder, with image documentation. COMPARISON: [facility], US, US ABDOMEN COMPLETE, 03/17/2018, 13:07. FINDINGS: Kidneys: Kidneys are mildly atrophic. Mild increased echogenicity is present suggestive of medical renal disease. Right kidney measures 10.6 cm long; left kidney measures 11.4 cm long. Right renal cortical thickness is 1.4 cm; left renal cortical thickness is 1.0 cm. Renal cortical echotexture is normal. No hydronephrosis or nephrolithiasis. No suspicious solid mass lesions. Bladder: Pre-void bladder volume is 195 mL. Post-void residual is 0 mL. Pre-void images demonstrate no intraluminal masses or stones. On pre-void images, bilateral ureteral jets are noted with color Doppler interrogation. (Of note, ureteral jets may not be detectable in up to 25% of cases due to insufficient differences in specific gravity between ureteral and bladder urine). Miscellaneous: No free pelvic fluid. IMPRESSION: Mild renal atrophy. No obstruction. Dictated by: Josy Forrester M.D. on 11/30/2022 at 17:14 Approved by: Josy Forrester M.D. on 11/30/2022 at 17:15
== END ==
PROVIDERS: Referring Provider Student in an Organized Health Care Education/Training Program; Visit Provider Student in an Organized Health Care Education/Training Program
DX: N18.31 Chronic kidney disease, stage 3a (principal); N26.1 Atrophy of kidney (terminal)
CPT/HCPCS: 76770

== ENCOUNTER 2022-12-15 15:15 | Outpatient (RCR) | payer MEDICARE, SELFPAY ==
[2019-03-18 14:19] VITALS: BMI 25.2
--- NOTE | 2022-12-10 17:52 | PT.OIE ---
Current Diagnoses Benign paroxysmal vertigo, right ear (12/10/22) Dizziness and giddiness (12/10/22) Past Medical History (Last Reviewed 02/17/22 @ 10:33 by Yulia Brady PA-C) Hyperlipidemia Hypertension TIA (transient ischemic attack) Past Surgical History (Last Reviewed 02/17/22 @ 10:33 by Yulia Brady PA-C) History of mandibular surgery Visit Care Team Role Provider Type Rachelle Posada PA-C Attending Provider Advanced Bus Boy Family Provider Primary Care Provider Referring Provider Specialty: Medical Address: [address] [place] [address], [id number] Email: Physical Therapy Initial Evaluation PT-OP-A Visit Information Start: 12/10/22 17:40 Freq: Status: Active Protocol: Document 12/10/22 16:45 DCW (Rec: 12/10/22 17:52 DCW [id number]) Out-Patient Physical Therapy Visit Information Visit Information Visit Type Initial Evaluation Visit Start Time 16:45 Visit Stop Time 17:30 Total Visit Minutes 45 Visit Number 1 Number of RELEASE ENGINEER Visits 0 Evaluation Information Evaluation Date 12/10/22 PT-OP-B Current Condition Start: 12/10/22 17:40 Freq: Status: Active Protocol: Document 12/10/22 16:45 DCW (Rec: 12/10/22 17:52 DCW [id number]) Current Condition History of Current Condition Onset Date A few weeks Current Complaints Position-dependent vertigo History of Current Condition Pt is a 77 year old male complaining of a few week history of motion-induced vertigo. Pt reports episodes last a couple of seconds. Symptoms are provoked by laying back or rolling over in bed. Pt does report that he has previously been successfully treated for BPPV using some procedure where they moved my head side-to- side. Reports that his PCP tried to help this time, but it was unsuccessful, so he decided to get a referral for PT. PT-OP-C Subjective Start: 12/10/22 17:40 Freq: Status: Active Protocol: Document 12/10/22 16:45 DCW (Rec: 12/10/22 17:52 DCW [id number]) OP-PT Subjective Patient Comments Patient Comments I'm alright if I go out an play pickleball, but just lying down really makes it spin. Patient Questionnaires Dizziness Handicap Inventory DHI Score 14% DHI Functional Impairment 1 to 19% Impaired (Score 1-19) PT-OP-O Vestibular Start: 12/10/22 17:40 Freq: Status: Active Protocol: Document 12/10/22 16:45 DCW (Rec: 12/10/22 17:52 DCW [id number]) Vestibular Assessment Screening Tests Vestibular Artery Screen Negative Visual Testing Smooth Pursuits Horizontal WNL Smooth Pursuits Vertical WNL Saccades Horizontal WNL Saccades Vertical WNL Heave Test Positive Bilateral Thrust Head Positive Bilateral Positional Testing Lindsay-Hallpike Positive Right,Negative Left, Upbeating,< 60 Seconds PT-OP-Q Treatments Start: 12/10/22 17:40 Freq: Status: Active Protocol: Document 12/10/22 16:45 DCW (Rec: 12/10/22 17:52 DCW [id number]) Canalithic Repositioning BPPV Treatment Gerald Affected Canal(s) R Posterior Reps x2 Comments Modified Gerald PT-OP-T Assessment and Plan Start: 12/10/22 17:40 Freq: Status: Active Protocol: Document 12/10/22 16:45 DCW (Rec: 12/10/22 17:52 DCW [id number]) Physical Therapy Assessment Rehab Potential Rehabilitation Potential Excellent Evaluation Complexity Number of Personal Factors/Comorbidities 1-2 Number of Body Systems Impaired 1-2 Clinical Presentation at Evaluation Unstable Impairments Impairments Balance,Vestibular Goals Two Impairment Positive right [place]-Hallpike Senior Care Goal (LTG) Pt to have negative positional testing bilaterally LTG Duration 01/07/23 One Impairment Pt reports position-dependent vertigo Senior Care Goal (LTG) Pt to report feeling asymptomatic with all bed mobility for one full week LTG Duration 01/07/23 Assessment Summary Assessment During right Lindsay-Hallpike test , pt complained of vertigo and demonstrated up-beating, torsional nystagmus lasting approximately 15 seconds, consistent with diagnosis of right-sided posterior canal BPPV, canalithiasis-type. Pt was treated with a right-sided modified Gerald maneuver. Pt complained of symptoms in the first and third position, which is normally indicative of a successful treatment. Further positional testing was negative. Pt was educated on BPPV, expectations for treatment, possible recurrence (BPPV has a ~50% recurrence rate in the five years following treatment), and post -Gerald restrictions. Pt to return in ~1 week for a follow -up appointment, and intermittently afterward as indicated for treatment of BPPV. Physical Therapy Plan Frequency and Duration Frequency of Treatment 1-2x/week Plan of Care Start Date 12/10/22 Plan of Care End Date 01/07/23 Therapeutic Interventions Therapeutic Interventions Balance Training,Canalithic Repositioning,Therapeutic Exercises,Vestibular Rehabilitation Next Visit Focus/Plan Next Note Type Treatment Note Next Visit Plan Positional testing, CRM as indicated
--- NOTE | 2022-12-10 17:52 | PT.OPPOC ---
Physical, Occupational & Speech Therapy At [facility] Current Diagnoses Benign paroxysmal vertigo, right ear (12/10/22) Dizziness and giddiness (12/10/22) Visit Care Team Role Provider Type Rachelle Posada PA-C Attending Provider Advanced Technical Support Consultant Family Provider Primary Care Provider Referring Provider Specialty: Medical Address: [address] [place] [address], [id number] Email: Plan Of Care PT-OP-T Assessment and Plan Start: 12/10/22 17:40 Freq: Status: Active Protocol: Document 12/10/22 16:45 DCW (Rec: 12/10/22 17:52 DCW [id number]) Physical Therapy Assessment Rehab Potential Rehabilitation Potential Excellent Evaluation Complexity Number of Personal Factors/Comorbidities 1-2 Number of Body Systems Impaired 1-2 Clinical Presentation at Evaluation Unstable Impairments Impairments Balance,Vestibular Goals Two Impairment Positive right Lindsay-Hallpike Long-Term Goal (LTG) Pt to have negative positional testing bilaterally LTG Duration 01/07/23 One Impairment Pt reports position-dependent vertigo Instrumentation And Control Technician Goal (LTG) Pt to report feeling asymptomatic with all bed mobility for one full week LTG Duration 01/07/23 Assessment Summary Assessment During right [place]-Hallpike test , pt complained of vertigo and demonstrated up-beating, torsional nystagmus lasting approximately 15 seconds, consistent with diagnosis of right-sided posterior canal BPPV, canalithiasis-type. Pt was treated with a right-sided modified Gerald maneuver. Pt complained of symptoms in the first and third position, which is normally indicative of a successful treatment. Further positional testing was negative. Pt was educated on BPPV, expectations for treatment, possible recurrence (BPPV has a ~50% recurrence rate in the five years following treatment), and post -Gerald restrictions. Pt to return in ~1 week for a follow -up appointment, and intermittently afterward as indicated for treatment of BPPV. Physical Therapy Plan Frequency and Duration Frequency of Treatment 1-2x/week Plan of Care Start Date 12/10/22 Plan of Care End Date 01/07/23 Therapeutic Interventions Therapeutic Interventions Balance Training,Canalithic Repositioning,Therapeutic Exercises,Vestibular Rehabilitation Next Visit Focus/Plan Next Note Type Treatment Note Next Visit Plan Positional testing, CRM as indicated Plan of Care Dates Plan of Care Start Date 12/10/22 Plan of Care End Date 01/07/23 Electronically Signed by: Artemio Lobato, PT 12/10/22 2298 If you are in agreement with this Plan of Care, please return a signed and dated copy. I have reviewed this Plan of Care and certify that the skilled therapy services above are required to meet the patient?s needs. Physician Signature Date Printed Name and Credentials Clinical Instructor Signature Printed Name and Credentials
--- NOTE | 2022-12-15 15:37 | PT.OTN ---
Current Diagnoses Benign paroxysmal vertigo, right ear (12/15/22) Dizziness and giddiness (12/15/22) Physical Therapy Treatment Note PT-OP-A Visit Information Start: 12/10/22 17:40 Freq: Status: Active Protocol: Document 12/15/22 15:15 DCW (Rec: 12/15/22 15:37 DCW [id number]) Out-Patient Physical Therapy Visit Information Visit Information Visit Type Discharge Summary Visit Start Time 15:15 Visit Stop Time 15:28 Total Visit Minutes 13 Visit Number 2 Number of DATA DELIVERABLES MANAGER Visits 0 Evaluation Information Evaluation Date 12/10/22 PT-OP-B Current Condition Start: 12/10/22 17:40 Freq: Status: Active Protocol: Document 12/10/22 16:45 DCW (Rec: 12/10/22 17:52 DCW [id number]) Current Condition History of Current Condition Onset Date A few weeks Current Complaints Position-dependent vertigo History of Current Condition Pt is a 77 year old male complaining of a few week history of motion-induced vertigo. Pt reports episodes last a couple of seconds. Symptoms are provoked by laying back or rolling over in bed. Pt does report that he has previously been successfully treated for BPPV using some procedure where they moved my head side-to- side. Reports that his PCP tried to help this time, but it was unsuccessful, so he decided to get a referral for PT. PT-OP-C Subjective Start: 12/10/22 17:40 Freq: Status: Active Protocol: Document 12/15/22 15:15 DCW (Rec: 12/15/22 15:37 DCW [id number]) OP-PT Subjective Patient Comments Patient Comments Pt reports his symptoms have been interesting. Reports his balance was really off the day after his last visit, improved over the rest of the day, and then felt fine the next day. PT-OP-O Vestibular Start: 12/10/22 17:40 Freq: Status: Active Protocol: Document 12/10/22 16:45 DCW (Rec: 12/10/22 17:52 DCW [id number]) Vestibular Assessment Screening Tests Vestibular Artery Screen Negative Visual Testing Smooth Pursuits Horizontal WNL Smooth Pursuits Vertical WNL Saccades Horizontal WNL Saccades Vertical WNL Heave Test Positive Bilateral Thrust Head Positive Bilateral Positional Testing Falls-Hallpike Positive Right,Negative Left, Upbeating,< 60 Seconds PT-OP-Q Treatments Start: 12/10/22 17:40 Freq: Status: Active Protocol: Document 12/15/22 15:15 DCW (Rec: 12/15/22 15:37 DCW [id number]) Self-Care/Home Management Treatment Activities Self-Care/Home Management Activities Discussed pt's symptoms of imbalance day after treatment, but notes no further symptoms . Discussed again possibility of recurrence, and treatment possibilities in the future. PT-OP-T Assessment and Plan Start: 12/10/22 17:40 Freq: Status: Active Protocol: Document 12/15/22 15:15 DCW (Rec: 12/15/22 15:37 DCW [id number]) Physical Therapy Assessment Impairments Impairments Balance,Vestibular Goals Two Impairment Positive right Falls-Hallpike [facility] Goal (LTG) Pt to have negative positional testing bilaterally LTG Duration 01/07/23 One Impairment Pt reports position-dependent vertigo [facility] Goal (LTG) Pt to report feeling asymptomatic with all bed mobility for one full week LTG Duration 01/07/23 Assessment Summary Assessment Pt came in and wanted to discuss his symptoms the day following his eval, but otherwise is feeling great, notes that he was rolling all over the place last night and was not able to trigger any symptoms. Did not feel it was necessary to perform any follow-up testing, and is agreeable to discharge at this time. Physical Therapy Plan Frequency and Duration Frequency of Treatment 1-2x/week Plan of Care Start Date 12/10/22 Plan of Care End Date 01/07/23 Therapeutic Interventions Therapeutic Interventions Balance Training,Canalithic Repositioning,Therapeutic Exercises,Vestibular Rehabilitation Discharge Physical Therapy Discharge Reasons Patient Request Next Visit Focus/Plan Next Note Type Discharge Summary
== END 2022-12-16 14:28 | disposition home or self-care (01) ==
LOC: PHYS 15:15
PROVIDERS: Absent Provider Physician Assistant; Family Provider Physician Assistant; PCP Physician Assistant; Referring Provider Physician Assistant; Visit Provider Physician Assistant
DX: H81.11 Benign paroxysmal vertigo, right ear (principal)
CPT/HCPCS: 95992; 97161; 97535

== ENCOUNTER → 2022-12-25 10:23 | Outpatient (CLI) | payer MEDICARE, SELFPAY ==
[2019-03-18 14:19] VITALS: BMI 25.2
[2022-12-25 11:08] LABS: Appearance Urine UA CLEAR; Bilirubin Urine UA NEGATIVE (NEGATIVE); Color Urine UA YELLOW; Glucose Urine UA NEGATIVE (Negative); Ketones Urine UA NEGATIVE (NEGATIVE); Leukocyte Esterase Urine UA TRACE (NEGATIVE); Nitrite Urine UA NEGATIVE (Negative); Occult Blood Urine UA 3+ (Negative); Protein Urine UA NEGATIVE (Negative); Urobilinogen Urine UA 0.2 E.U./dL (0.2); pH Urine UA 6.5 (4.5-8.0)
[2022-12-25 11:15] LABS: Bacteria Urine None Seen; Culture Indicated Urine Specimen Cultured; RBC Urine 10-30/HPF (0-5/HPF); WBC Urine 0-1/HPF (0-5/HPF)
[2022-12-25 11:47] LABS: Creatinine Urine Random 109.4 mg/dL; Protein (Total) Urine Random 11 mg/dL (0-12)
[2022-12-25 12:36] LABS: Hematocrit 41.9 % (41-53); Hemoglobin 13.9 g/dL (13.5-17.5)
[2022-12-25 12:53] LABS: BUN Creatinine Ratio 12.8 (6-22); Blood Urea Nitrogen 18 mg/dL (9-20); Calcium 8.6 mg/dL (8.4-10.2); Carbon Dioxide 29 mmol/L (22-32); Chloride 101 mmol/L (98-107); Estimated Glomerular Filt Rate 51 mL/min (>60); Glucose 94 mg/dL (80-110); HEMOLYSIS < 15 (0-50); Phosphorous 2.9 mg/dL (2.3-3.7); Potassium 4.6 mmol/L (3.4-5.1); Sodium 137 mmol/L (137-145)
[2022-12-26 07:09] LABS: Parathyroid Hormone Int 60 pg/mL (15-65)
== END ==
PROVIDERS: Family Provider Physician Assistant; PCP Physician Assistant; Referring Provider Student in an Organized Health Care Education/Training Program; Visit Provider Student in an Organized Health Care Education/Training Program
DX: N05.9 Unspecified nephritic syndrome with unspecified morphologic changes (principal); D64.9 Anemia, unspecified; E83.30 Disorder of phosphorus metabolism, unspecified; N25.81 Secondary hyperparathyroidism of renal origin; N30.00 Acute cystitis without hematuria; R80.9 Proteinuria, unspecified
CPT/HCPCS: 36415; 80048; 81001; 82570; 83970; 84100; 84156; 85014; 85018; 87077; 87086; 87186

== ENCOUNTER → 2023-04-06 15:38 | Outpatient (CLI) | payer MEDICARE, SELFPAY ==
[2019-03-18 14:19] VITALS: BMI 25.2
[2023-04-06 16:28] LABS: Influenza A - CEPHEID Flu A NEGATIVE (NEGATIVE); Influenza B - CEPHEID Flu B NEGATIVE (NEGATIVE); Respiratory Syncytial Virus Negative (Negative)
[2023-04-06 16:48] LABS: COVID-19 CEPHEID 4-PLEX PCR POSITIVE (Negative)
== END ==
PROVIDERS: Family Provider Physician Assistant; PCP Physician Assistant; Visit Provider Physician Assistant
DX: R05.1 Acute cough (principal)
CPT/HCPCS: 0241U

== ENCOUNTER → 2023-04-06 15:44 | Outpatient (CLI) | payer MEDICARE, SELFPAY ==
[2019-03-18 14:19] VITALS: BMI 25.2
--- NOTE | 2023-04-06 15:45 | DI.RAD.S_ITS ---
PROCEDURE: XR CHEST 2V INDICATIONS: shortness of breath TECHNIQUE: 2 views of the chest were acquired. COMPARISON: None. FINDINGS: Surgical changes and devices: None. Lungs and pleura: Lungs are clear. No pleural effusions or pneumothorax. Mediastinum: Mediastinal contours are normal. Heart size is normal. Bones and chest wall: No suspicious bony abnormalities. Soft tissues appear unremarkable. IMPRESSION: No acute cardiopulmonary disease process. Dictated by: Joycelyn Jones MD, PhD on 04/06/2023 at 16:18 Approved by: Joycelyn Jones MD, PhD on 04/06/2023 at 16:18
== END ==
PROVIDERS: Family Provider Physician Assistant; PCP Physician Assistant; Referring Provider Physician Assistant; Visit Provider Physician Assistant
DX: R06.00 Dyspnea, unspecified (principal); R05.1 Acute cough
CPT/HCPCS: 0241U; 71046

== ENCOUNTER → 2024-07-25 12:14 | Outpatient (CLI) | payer MEDICARE, SELFPAY ==
[2019-03-18 14:19] VITALS: BMI 25.2
--- NOTE | 2024-07-25 12:17 | DI.RAD.S_ITS ---
PROCEDURE: XR KNEE LT 4V INDICATIONS: Pain in left knee TECHNIQUE: 4 views of the knee were acquired. COMPARISON: None. FINDINGS: Bones: No acute fractures or dislocations. No suspicious bony lesions. Moderate to severe joint space narrowing of the medial femorotibial compartment with mild subchondral sclerosis and tiny marginal osteophytes. [id number] joint space narrowing at the lateral femorotibial compartment and the patellofemoral compartment. Tiny suprapatellar enthesophyte. Soft tissues: No joint effusion. No suspicious soft tissue calcifications. 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 Approved by: Ricardo Hidalgo M.D. on 07/25/2024 at 20:47
== END ==
PROVIDERS: Family Provider Physician Assistant; PCP Internal Medicine; Referring Provider Internal Medicine; Visit Provider Internal Medicine
DX: M17.12 Unilateral primary osteoarthritis, left knee (principal); M25.562 Pain in left knee
CPT/HCPCS: 73564